=== PATIENT | female | born 1985 | race Caucasian/White ===

== ENCOUNTER 2016-08-13 22:34 | Emergency (ER) | payer OTHER | END 2016-08-14 01:00 | disposition home or self-care (01) | LOC: FER 22:34 | DX: S92.512B Displaced fracture of proximal phalanx of left lesser toe(s), initial encounter for open fracture (principal); F17.210 Nicotine dependence, cigarettes, uncomplicated; W34.09XA Accidental discharge from other specified firearms, initial encounter; Y92.830 Public park as the place of occurrence of the external cause | CPT/HCPCS: 73630; J1170 ==

== ENCOUNTER 2021-06-19 07:03 | Emergency (ER) | payer OTHER ==
[~2021-06-19 07:03] MED LIST: IBUPROFEN800 M1 PO; ORILISSA150 MG PO; PERCOCET 5-3251 EACH PO
[2021-06-19 08:14] LABS: BILIRUBIN NEGATIVE (NEGATIVE); BLOOD NEGATIVE Ery/uL (NEGATIVE); CLARITY HAZY (CLEAR); COLOR YELLOW (YELLOW); GLUCOSE (U) NORMAL (NORMAL); LEUKOCYTES NEGATIVE Leu/uL (NEGATIVE); NITRITE NEGATIVE (NEGATIVE); PROTEIN NEGATIVE (NEGATIVE); SPECIFIC GRAVITY 1.025 (1.001-1.030); UROBILINOGEN 0.2 mg/dL (0.2-1.0)
[2021-06-19] MEDS ORDERED: MIRALAX 238GM238 GM PO (08:27)
[2021-06-19] MEDS ORDERED: SENNA PLUS 8.61 EACH PO (08:27)
[2021-06-19 08:33] LABS: BASOPHIL 0.9 % (0-2); EOSINOPHIL 3.6 % (0-5); HGB 12.8 g/dl (12.5-16.0); MCH 28.9 pg (25.0-31.0); MCHC 32.8 g/dL (32.0-36.0); MONOCYTE 10.8 % (0-12); MPV 10.3 fL (6.0-9.5); NEUTROPHIL 41.2 % (41-80); NRBC 0; PLT 298 K/uL (150-400); RBC 4.43 M/uL (4.20-5.40); RDW 14.4 % (11.5-14.0); WBC 7.8 K/uL (4.0-10.5)
== END 2021-06-19 08:47 | disposition home or self-care (01) ==
LOC: FER 07:03
PROVIDERS: Internal Medicine
DX: K59.00 Constipation, unspecified (principal); R10.32 Left lower quadrant pain; F17.210 Nicotine dependence, cigarettes, uncomplicated
CPT/HCPCS: 36415; 81003; 85025; J1170